=== PATIENT | female | born 2005 | race Two or more races ===

== ENCOUNTER 2024-04-02 13:44 | Outpatient (CLI) | payer OTHER | END 2024-04-02 13:46 | disposition home or self-care (01) | LOC: PRENATAL 13:44 | PROVIDERS: ATTEND Obstetrics & Gynecology Maternal & Fetal Medicine | DX: O36.80X0 Pregnancy with inconclusive fetal viability, not applicable or unspecified (principal); Z36.82 Encounter for antenatal screening for nuchal translucency; Z36.9 Encounter for antenatal screening, unspecified; Z3A.12 12 weeks gestation of pregnancy ==

== ENCOUNTER → 2024-05-21 | Outpatient (CLI) | payer OTHER | END | disposition home or self-care (01) | LOC: PRENATAL 08:09 | PROVIDERS: ATTEND Obstetrics & Gynecology Maternal & Fetal Medicine | DX: O35.3XX0 Maternal care for (suspected) damage to fetus from viral disease in mother, not applicable or unspecified (principal); O44.00 Complete placenta previa NOS or without hemorrhage, unspecified trimester; Z3A.19 19 weeks gestation of pregnancy ==

== ENCOUNTER → 2024-07-24 14:10 | Outpatient (CLI) | payer OTHER | END | disposition home or self-care (01) | LOC: PRENATAL 14:10 | PROVIDERS: ATTEND Obstetrics & Gynecology Maternal & Fetal Medicine | DX: O26.849 Uterine size-date discrepancy, unspecified trimester (principal); O36.8199 Decreased fetal movements, unspecified trimester, other fetus; O43.90 Unspecified placental disorder, unspecified trimester; Z3A.28 28 weeks gestation of pregnancy ==

== ENCOUNTER 2024-08-14 10:26 | Outpatient (CLI) | payer OTHER | END 2024-08-14 12:02 | disposition home or self-care (01) | LOC: NST 10:26 | PROVIDERS: ATTEND General Practice | DX: Z34.83 Encounter for supervision of other normal pregnancy, third trimester (principal) ==

== ENCOUNTER 2024-09-03 15:30 | Outpatient (CLI) | payer OTHER | END 2024-09-03 15:31 | disposition home or self-care (01) | LOC: PRENATAL 15:30 | PROVIDERS: ATTEND Obstetrics & Gynecology Maternal & Fetal Medicine | DX: O26.849 Uterine size-date discrepancy, unspecified trimester (principal); O36.8199 Decreased fetal movements, unspecified trimester, other fetus; O43.90 Unspecified placental disorder, unspecified trimester; Z3A.34 34 weeks gestation of pregnancy ==

== ENCOUNTER → 2024-10-01 13:39 | Outpatient (CLI) | payer OTHER | END | disposition home or self-care (01) | LOC: PRENATAL 13:39 | PROVIDERS: ATTEND Obstetrics & Gynecology Maternal & Fetal Medicine | DX: O26.849 Uterine size-date discrepancy, unspecified trimester (principal); O36.8199 Decreased fetal movements, unspecified trimester, other fetus; O40.1XX0 Polyhydramnios, first trimester, not applicable or unspecified; Z3A.36 36 weeks gestation of pregnancy ==

== ENCOUNTER 2024-10-08 09:58 | Inpatient (IN) | payer OTHER ==
[2024-10-08] VITALS (8 sets, daily range): BP systolic 112–1116; BP diastolic 46–76
[~2024-10-08] VITALS: Ht 157.5 cm; Wt 66.7 kg
[2024-10-08] MEDS ORDERED: RINGERS SOLUTION,LACTATED 1,000 ML IV SCH (10:30)
[2024-10-08] MEDS ORDERED: VALTREX1000 MG PO (11:18)
[2024-10-08] MEDS ORDERED: PRENATAL TABLE1 EAC1 PO (11:19)
[2024-10-08] MEDS ORDERED: IRON18 M1 (11:19)
[2024-10-08] MEDS ORDERED: MISOPROSTOL 25 MCG/4 ML GEL.W.APPL VAG ONE (11:30)
[2024-10-08 11:38] LABS: HEMATOCRIT 35.4 % (36.0-45.00); HEMOGLOBIN 11.8 g/dL (12.0-15.00); MEAN CELL VOLUME 86.7 fL (80.00-100.00); MEAN CORPUSCULAR HEMOGLOBIN 28.8 pg (27.00-32.0); MEAN CORPUSCULAR HGB CONC 33.2 g/dl (32.0-36.0); PLATELET COUNT 245 K/uL (150-450); RED BLOOD COUNT 4.09 M/uL (4.00-6.00); RED CELL DISTRIBUTION WIDTH 18.7 % (11.5-14.5)
[2024-10-08 11:55] LABS: INR 0.98; PARTIAL THROMBOPLASTIN TIME 28.3 SECONDS (22.0-34.0); PROTHROMBIN TIME 10.7 SECONDS (9.0-11.5)
[2024-10-08 12:27] LABS: ALBUMIN 2.9 gm/dL (3.4-5.0); BILIRUBIN TOTAL 0.29 mg/dL (0.3-1.2); CALCIUM 8.9 mg/dL (8.5-10.1); CREATININE SERUM 0.53 mg/dL (0.55-1.02); GFR 147.07; GLOBULINA 3.8 G/DL (2.4-3.5); POTASSIUM 3.93 mEq/L (3.5-5.1); TOTAL PROTEIN 6.7 gm/dL (6.4-8.2)
[2024-10-08] MEDS ORDERED: OXYTOCIN 20 UNITS/500ML RL PIGGYBAG IV ONE (15:47)
[2024-10-08] MEDS ORDERED: OXYTOCIN 20 UNITS/500ML RL PIGGYBAG IV NR (16:00)
[2024-10-08] MEDS ORDERED: MORPHINE SULFATE 4 MG/ML CARTRIDGE IV ONE (18:15)
[2024-10-08] MEDS ORDERED: OXYTOCIN 20 UNITS/1000ML RL PIGGYBAG IV ONE (19:12)
[2024-10-08] MEDS ORDERED: ERYTHROMYCIN BASE OPHT 1GM EACH TUBE OP ONE (19:12)
[2024-10-08] MEDS ORDERED: CHLORHEXIDINE GLUCONATE 120 ML BOTTLE TOP ONE ×2 (19:13→19:45)
[2024-10-08] MEDS ORDERED: LIDOCAINE HCL 1% 10ML VIAL ONE (19:13)
[2024-10-08] MEDS ORDERED: OXYTOCIN 1,000 ML IV SCH (19:45)
[2024-10-08] MEDS ORDERED: DOCUSATE SODIUM 100MG CAP PO SCH (19:46)
[2024-10-08] MEDS ORDERED: BENZOCAINE/MENTHOL 90 ML BOTTLE TOP SCH (21:00)
[2024-10-08] MEDS ORDERED: IBUprofen 400 MG TABLET PO SCH (21:00)
[2024-10-09 00:03] VITALS: BP 116/69
[2024-10-09 08:32] LABS: HEMATOCRIT 33.7 % (36.0-45.00); HEMOGLOBIN 11.4 g/dL (12.0-15.00); MEAN CELL VOLUME 86.7 fL (80.00-100.00); MEAN CORPUSCULAR HEMOGLOBIN 29.2 pg (27.00-32.0); MEAN CORPUSCULAR HGB CONC 33.7 g/dl (32.0-36.0); PLATELET COUNT 247 K/uL (150-450); RED BLOOD COUNT 3.89 M/uL (4.00-6.00); RED CELL DISTRIBUTION WIDTH 19.1 % (11.5-14.5)
[2024-10-09 09:17] VITALS: BP 103/65
[2024-10-09 16:42] VITALS: BP 118/71
[2024-10-10] VITALS: BP 112/72
[2024-10-10 08:00] VITALS: BP 109/69
[2024-10-10 17:03] VITALS: BP 120/62
== END 2024-10-10 17:36 | disposition home or self-care (01) | DRG 807 ==
LOC: LDR 09:58 → OB/GYN 20:29
PROVIDERS: Obstetrics & Gynecology; ADMIT General Practice; ATTEND General Practice
PROC: 10E0XZZ Delivery of Products of Conception, External Approach (ICD-10-PCS; principal; 2024-10-08)
PROC: 0KQM0ZZ Repair Perineum Muscle, Open Approach (ICD-10-PCS; 2024-10-08)
PROC: 3E033VJ Introduction of Other Hormone into Peripheral Vein, Percutaneous Approach (ICD-10-PCS; 2024-10-08)
PROC: 3E0P7VZ Introduction of Hormone into Female Reproductive, Via Natural or Artificial Opening (ICD-10-PCS; 2024-10-08)
PROC: 4A1HXCZ Monitoring of Products of Conception, Cardiac Rate, External Approach (ICD-10-PCS; 2024-10-08)
DX: O70.1 Second degree perineal laceration during delivery (principal); Z37.0 Single live birth; Z3A.39 39 weeks gestation of pregnancy

== ENCOUNTER 2025-05-31 17:22 | Emergency (ER) | payer OTHER ==
[~2025-05-31] VITALS: Ht 157.5 cm; Wt 46.3 kg
[~2025-05-31 17:22] MED LIST: IRON18 M1; PRENATAL TABLE1 EAC1 PO; VALTREX1000 MG PO
[2025-05-31] MEDS ORDERED: ONDANSETRON HCL 2 MG/ML VIAL ONE (18:51)
[2025-05-31] MEDS ORDERED: FAMOTIDINE/PF 20 MG/2 ML VIAL ONE (18:51)
[2025-05-31] MEDS ORDERED: FAMOtidine 10 MG/ML (4ML VIAL) IV ONE (19:00)
[2025-05-31] MEDS ORDERED: ONDANSETRON HCL 2 MG/ML VIAL IV ONE (19:00)
[2025-05-31] MEDS ORDERED: 0.9 % SODIUM CHLORIDE 1,000 ML IV ONE (19:00)
[2025-05-31 19:15] LABS: BASO % 0.2 % (0.1-1.2); EOS # 0.02 (0.04-0.54); EOS % 0.2 % (0.7-7.0); LYMPH # 0.35 (1.18-3.74); LYMPH % 2.9 % (19.3-53.1); MEAN PLATELET VOLUME 9.70 fl (9.4-12.4); MONO # 0.65 (0.24-0.82); MONO % 5.4 % (4.7-12.5); NEUT # 11.03 (1.56-6.13); NEUT % 91.1 % (34.0-71.1); RED CELL DISTRIBUTION WIDTH 12.7 % (11.6-14.4)
[2025-05-31 19:29] LABS: INR 1.18
[2025-05-31 20:04] LABS: COVID-19 AG NEGATIVE (NEGATIVE)
[2025-05-31 20:06] LABS: ALT/SGPT 20 U/L (12-78); AST/SGOT 12 U/L (15-37); BILIRUBIN TOTAL 1.00 mg/dL (0.3-1.2); BUN CREA RATIO 22 (7.0-25.0); CREATININE SERUM 0.96 mg/dL (0.55-1.02); GFR 73.37; GLOBULINA 3.7 G/DL (2.4-3.5); GLUCOSE FASTING 121 mg/dL (65-100); OSMOLALITY SERUM 291 MOSM/KG (275-295)
[2025-05-31 20:08] LABS: HCG QUANTITATIVE < 1 mUI/mL (1-3)
[2025-05-31] MEDS ORDERED: CIPROFLOXACIN IN 5 % DEXTROSE 400 MG/200 ML PIGGYBAG IV ONE ×2 (20:30→21:18)
[2025-05-31] MEDS ORDERED: DIPHENHYDRAMINE HCL 50 MG/ML VIAL 1ML ONE (20:31)
[2025-05-31] MEDS ORDERED: METHYLPREDNISOLONE SOD SUCC 40 MG VIAL ONE (20:31)
[2025-05-31 21:57] LABS: URINE APPEARANCE Clear; URINE BILIRRUBIN Negative (NEGATIVE); URINE BLOOD Trace; URINE COLOR Dark Yellow; URINE GLUCOSE Negative (NEGATIVE); URINE LEUKOCYTE Trace; URINE NITRATE Negative; URINE PROTEIN Trace (NEGATIVE); URINE UROBILINOGEN 0.2 E.U./dl
[2025-05-31 22:00] LABS: URINE BACTERIA 1642.7 uL (0.0-1933); URINE CAST 1.61 uL (0.0-1.40); URINE EPITHELIAL CELLS 48.7 uL (0.0-38.8); URINE RBC 14.9 uL (0.0-20.8); URINE WBC 25.8 uL (0.0-23.2)
[2025-05-31 22:16] LABS: URINE KETONE 40 (NEGATIVE)
[2025-05-31] MEDS ORDERED: PROBIOTIC1 EAC2 PO (22:21)
[2025-05-31] MEDS ORDERED: PEPCID AC20 MG PO (22:21)
[2025-05-31] MEDS ORDERED: CIPRO500 MG PO (22:21)
[2025-05-31] MEDS ORDERED: ZOFRAN8 MG PO (22:21)
== END 2025-05-31 22:51 | disposition home or self-care (01) ==
LOC: ER 17:23
PROVIDERS: General Practice
DX: R11.10 Vomiting, unspecified (principal); R19.7 Diarrhea, unspecified; J45.909 Unspecified asthma, uncomplicated